=== PATIENT | female | born 1965 | race African-American/Black ===

== ENCOUNTER 2021-12-22 13:46 | Inpatient (IN) ==
[2021-12-22] MEDS ORDERED: ONDANSETRON 4 MG/2 ML VIAL IV PRN (17:19)
[2021-12-22] MEDS ORDERED: GLUCAGON 1 MG VIAL IM PRN (17:19)
[2021-12-22] MEDS ORDERED: DOCUSATE SODIUM 100 MG CAPSULE PO PRN (17:19)
[2021-12-22] MEDS ORDERED: ACETAMINOPHEN 325 MG TABLET PO PRN (17:19)
[2021-12-22] MEDS ORDERED: DEXTROSE 10% 250 ML BAG IV PRN (17:26)
[2021-12-22] MEDS ORDERED: ENOXAPARIN 40 MG/0.4 ML SYRINGE SUBCUT SCH (17:30)
[2021-12-22] MEDS ORDERED: GABAPENTIN 300 MG CAPSULE PO PRN (17:34)
[2021-12-22] MEDS ORDERED: ALBUTEROL/IPRATROPIUM 3 ML NEB RESP TX PRN (17:34)
[2021-12-22] MEDS ORDERED: cefTRIAXone 2,000 MG in SODIUM CHLORIDE 0.9% 100 ML IV SCH (18:00)
[2021-12-22 18:37] LABS: Risk Ratio 3.03; Thyroid Stimulating Hormone 1.8 uIU/ml (0.358-3.74); VLDL Cholesterol 16.2 MG/DL
[2021-12-22] MEDS ORDERED: AZITHROMYCIN INJ 500 MG in SODIUM CHLORIDE 0.9% 250 ML IV SCH (20:00)
[2021-12-22] MEDS ORDERED: cefTRIAXone 1,000 MG VIAL IM SCH (21:00)
[2021-12-22] MEDS: PANTOPRAZOLE 40 MG TABLET PO SCH (22:05)
[2021-12-22] MEDS: AZITHROMYCIN 250 MG TABLET PO SCH (22:08)
[2021-12-23 05:12] LABS: Basophils # 0.1 10*3/uL (0.0-0.2); Basophils % 1.2 % (0.0-0.8); Eosinophils # 0.3 10*3/uL (0.0-0.87); Eosinophils % 3.1 % (0.00-10.9); Hematocrit 36.1 VOL% (35.7-47.0); Hemoglobin 11.9 GM/DL (12.0-16.0); Immature Granulocytes % 0.3 %; Immature Granulocytes Absolute 0.03 #; Lymphocytes # 3.4 10*3/uL (1.4-4.0); Lymphocytes % 38.9 % (21.3-54.2); Mean Corpuscular Volume 84.5 FL (87-102); Monocytes # 0.9 10*3/uL (0.11-0.8); Monocytes % 9.9 % (1.7-12.7); Neutrophils % 46.6 % (38.7-73.9); Platelet Count 340 T/CUMM (130-400); Red Blood Count 4.27 MC/CUMM (3.8-5.5); White Blood Count 8.7 T/CUMM (4-12)
[2021-12-23 05:23] LABS: Osmolality,Calculated 280.3 MOS/KG (273-304); Potassium 4.1 MMOL/L (3.5-5.1)
[2021-12-23] MEDS: AZITHROMYCIN 250 MG TABLET PO SCH (09:46)
[2021-12-23] MEDS: DILTIAZEM CD 240 MG CAPSULE PO SCH (10:06)
[2021-12-23] MEDS: APIXABAN 5 MG TABLET PO SCH ×2 (10:06→20:39)
[2021-12-23] MEDS: PANTOPRAZOLE 40 MG TABLET PO SCH (20:40)
[2021-12-24 06:15] LABS: Basophils # 0.1 10*3/uL (0.0-0.2); Basophils % 0.8 % (0.0-0.8); Eosinophils # 0.4 10*3/uL (0.0-0.87); Eosinophils % 4.7 % (0.00-10.9); Hematocrit 36.6 VOL% (35.7-47.0); Hemoglobin 12.3 GM/DL (12.0-16.0); Immature Granulocytes % 0.4 %; Immature Granulocytes Absolute 0.03 #; Lymphocytes # 3.3 10*3/uL (1.4-4.0); Lymphocytes % 42.8 % (21.3-54.2); Mean Corpuscular HGB Conc 33.6 GM/DL (32-36); Mean Corpuscular Volume 83.8 FL (87-102); Mean Platelet Volume 9.9 FL (9.6-12.0); Monocytes # 0.8 10*3/uL (0.11-0.8); Monocytes % 10.2 % (1.7-12.7); Neutrophils % 41.1 % (38.7-73.9); Platelet Count 342 T/CUMM (130-400); Red Blood Count 4.37 MC/CUMM (3.8-5.5); Red Cell Distribution Width 11.9 % (9.3-17.3); White Blood Count 7.6 T/CUMM (4-12)
[2021-12-24 07:52] VITALS: BP 116/74
[2021-12-24] MEDS: APIXABAN 5 MG TABLET PO SCH (08:45)
[2021-12-24] MEDS: DILTIAZEM CD 240 MG CAPSULE PO SCH (08:45)
== END 2021-12-24 11:00 | disposition home or self-care (01) | DRG 176 ==
LOC: N.5E → SUATTDRO 15:22
PROVIDERS: ADMIT Internal Medicine; ATTEND Internal Medicine